=== PATIENT | male | born 1990 | race Caucasian/White ===

== ENCOUNTER 2016-06-13 19:19 | Emergency (ER) | payer OTHER ==
[2016-06-13 19:30] VITALS: O2SAT 94
[2016-06-13] MEDS ORDERED: NS 1,000 ML IV ONE (20:27)
[2016-06-13] MEDS ORDERED: ONDANSETRON 4 MG/2 ML VIAL IVP ONE (20:27)
--- NOTE | 2016-06-13 20:31 | EDPHY ---
General - History Smoking Status: Heavy smoker Narrative: CHIEF COMPLAINT: sore throat hemoptysis, recent tonsillectomy HISTORY OF PRESENT ILLNESS: patient had a tonsillectomy on June 02 in [place] at [facility]. He said that he was doing well with normal postoperative progression. However today he started coughing up blood. This was bright red blood. Said he contacted the surgeon and they instructed him to come the emergency department. No fever or chills. He has been tolerating food well recently. The pain is moderate to severe in the throat but this has been persistent. No chest pain or shortness of breath. No other associated complaints or modifying factors. Last intake by mouth was lunch time with some liquids 45 minutes ago. REVIEW OF SYSTEMS: Ten systems reviewed and are negative unless otherwise noted in the HPI PERTINENT MEDICAL HISTORY: EXAMINATION General Appearance: Alert, no distress Head: normocephalic, atraumatic Eyes: Pupils equal and round, no conjunctival pallor or injection ENT, Mouth: Mucous membranes moist . Uvula midline. There is postoperative change in the tonsillar fossas. There are eschars noted. Mild venous bleeding noted. No pulsatile flow noted. Airway is patent. Neck: Normal inspection, supple, non-tender . No lymphadenopathy. No crepitus or subcutaneous emphysema. Respiratory: Lungs are clear to auscultation . No wheezing, rhonchi or crackles Cardiovascular: Regular rate and rhythm . No murmur. Pulses intact distally. Gastrointestinal: Abdomen is soft and nontender Back: non-tender, no bony abnormalities Neurological: A&O, nonfocal, normal gait Skin: Warm and dry, no rash Extremities: Nontender, no pedal edema Psychiatric: Mood and affect normal DIFFERENTIAL DIAGNOSES: Including but not limited to Postoperative bleeding, postoperative infection, abscess, posterior pharynx MDM: 8:20 p.m. postoperative pain and bleeding from tonsillectomy on June 02. There does appear to be some mild venous bleeding in the posterior pharynx. I do not appreciate any pulsatile flow. I do appreciate eschars on the tonsils. I will obtain CT scan of the neck soft tissue, IV fluids will be administered and we will administer pain medication. He is in no acute distress. His airway is widely patent. 9:50 p.m. notified by radiologist that the CT scan of the neck soft tissues unremarkable. No hematoma or active extravasation as best as can be seen on this study. 10:00 p.m. I have re-evaluated the patient. I do not appreciate any bleeding at this time. There are eschars noted. Airway is widely patent without any visualization of blood. He is in no acute distress. I discussed the CT findings and the fact that this is likely venous bleeding from accidental removal of eschars. I feel he is stable for discharge home with instructions to follow up with his surgeon in the morning by telephone. He will be provided a disc of the imaging. He is to return to the ER for any return of the hemoptysis or vomiting of any blood. he is comfortable with this plan. I have answered all his questions. He is discharged home in stable condition. SUPERVISION: This patient was independently evaluated without the aide of supervising physician. Case discussed with Dr. Alfonso (Moe Barrera) Discussion: The patient wasevaluatedand managed by themidlevel provider. Idiscussed the patient's presentation and course with thephysicianassistantor nurse practitionerand agree with theevaluation. My co-signature indicates that I have reviewed this chart and I agree with the findings and plan of care as documented. I am the secondary supervisingphysician. (Lola Alfonso) - Objective Vital Signs: Initial Vital Signs Temperature (C) 36.5 C 06/13/16 19:27 Heart Rate 88 06/13/16 19:27 Respiratory Rate 16 06/13/16 19:27 Blood Pressure 120/76 06/13/16 19:27 O2 Sat (%) 94 06/13/16 19:27 O2 Delivery Mode Room Air Allergies/Adverse Reactions: No Known Allergies Allergy (Unverified 06/13/16 19:30) Home Medications: Medication Instructions Recorded oxyCODONE HCL/ACETAMINOPHEN 1 each PO Q4-6PRN PRN #15 tablet 06/13/16 [Percocet 5-325 mg Tablet] Medications Given: Discontinued Medications Sodium Chloride (Ns) 1,000 mls @ 0 mls/hr IV ONCE ONE PRN Reason: Wide Open Stop: 06/13/16 20:28 Last Admin: 06/13/16 21:28 Dose: 1,000 mls Morphine Sulfate (Morphine) 4 mg IVP EDNOW ONE Stop: 06/13/16 20:28 Last Admin: 06/13/16 21:27 Dose: 4 mg Ondansetron HCl (Zofran) 4 mg IVP EDNOW ONE Stop: 06/13/16 20:28 Last Admin: 06/13/16 21:28 Dose: 4 mg Oxycodone/Acetaminophen (Percocet 5/325mg Prepack#4) 1 btl TAKEHOME EDNOW ONE Stop: 06/13/16 21:57 Last Admin: 06/13/16 22:31 Dose: 1 btl Departure - Departure Disposition: Home, Routine, Self-Care Clinical Impression: Post-op pain, Post-tonsillectomy pain Acute pharyngitis Qualifiers: Pharyngitis/tonsillitis etiology: unspecified etiology Qualified Code(s): J02.9 - Acute pharyngitis, unspecified Condition: Good Instructions: Pharyngitis (ED) Additional Instructions: follow up with surgeon tomorrow morning. Return to the ER for worsening pain or bleeding Referrals: UNKNOWN,[facility] [Other] - As per Instructions Prescriptions: oxyCODONE HCL/ACETAMINOPHEN [Percocet 5-325 mg Tablet] 1 each PO Q4-6PRN PRN # 15 tablet PRN Reason: Pain, Breakthrough
[2016-06-13] MEDS ORDERED: IOPAMIDOL (ISOVUE-300) 100 ML BTL IV ONE (20:59)
[2016-06-13 21:03] LABS: INR 0.93 (0.83-1.16); PROTIME(PATIENT) 12.4 SEC (12.0-15.0)
[2016-06-13 21:04] LABS: APTT 27.7 SEC (23.0-38.0)
[2016-06-13] MEDS ORDERED: OXYCODONE/APAP 5/325MG PREPACK#4 BTL TAKEHOME ONE (21:56)
[2016-06-13 22:29] VITALS: BP 128/78; PULSE 70; RESP 14; TEMP 98.4
== END 2016-06-13 22:27 | disposition home or self-care (01) ==
DX: G89.18 Other acute postprocedural pain (principal); J02.9 Acute pharyngitis, unspecified; F17.200 Nicotine dependence, unspecified, uncomplicated
CPT/HCPCS: 82947-QW; 96374; J2405; Q9967